=== PATIENT | male | born 1980 | race Caucasian/White ===

== ENCOUNTER → 2017-07-25 | Outpatient (CLI) | payer BC ==
--- NOTE | 2017-07-25 08:34 | DIAGNOSTIC IMAGING REPORT ---
ABD/PELVIS NO IV OR ORAL CONT CT DOSE: 1462.42 mGy.cm HISTORY: Pain WITHOUT CONTRAST, R10.9, K21.9 TECHNIQUE: Multiaxial CT images of the abdomen and pelvis were performed without contrast. A dose lowering technique was utilized adhering to the principles of ALARA. COMPARISON STUDY: None. FINDINGS: Lung bases are clear. Liver spleen and pancreas are uniform. The adrenal glands are normal. Kidneys negative for calcification or hydronephrosis. Bowel pattern overall is nonobstructive. Findings of mild chronic sigmoid diverticulosis. There is no evidence for acute diverticulitis. There is no free fluid within the pelvic cul-de-sac. IMPRESSION: Mild chronic sigmoid diverticulosis. 2. No evidence for acute diverticulitis. 3. Study is otherwise negative. 4. Normal appendix. The above report was generated using voice recognition software. It may contain grammatical, syntax or spelling errors. Electronically signed by: Nahum Hermosillo M.D. 07/25/2017 8:33 AM Dictated Date/Time: 07/25/2017 8:27 AM
== END | disposition home or self-care (01) ==
LOC: C.CTS 08:11
PROVIDERS: ATTEND Physician Assistant
DX: R10.9 Unspecified abdominal pain (principal); K21.9 Gastro-esophageal reflux disease without esophagitis